=== PATIENT | male | born 1935 | race Caucasian/White ===

== ENCOUNTER 2021-02-27 08:32 | Day surgery (SDC) | payer OTHER ==
[~2021-02-27] VITALS: Ht 160 cm; Wt 81.8 kg
[~2021-02-27 08:32] MED LIST: SODIUM CHLORIDE 0.9% 1,000 ML IV ONE
[2021-02-27] MEDS ORDERED: SODIUM CHLORIDE 0.9% 1,000 ML ONE (08:55)
[2021-02-27 10:07] LABS: COVID AG,FIA SOURCE NASOPHARYNGEAL
[2021-02-27] MEDS ORDERED: PROPOFOL 1% 20 ML VIAL IVP ONE (12:00)
[2021-02-27] MEDS ORDERED: LIDOCAINE/PF 2% 5 ML VIAL IM ONE (12:00)
[2021-02-27] MEDS ORDERED: OXYGEN THERAPY IH SCH (20:00)
== END 2021-02-27 12:30 | disposition home or self-care (01) ==
LOC: SURGERY 08:32
PROVIDERS: ATTEND Specialist
DX: R13.10 Dysphagia, unspecified (principal); M10.9 Gout, unspecified; I48.91 Unspecified atrial fibrillation; E78.00 Pure hypercholesterolemia, unspecified; M19.90 Unspecified osteoarthritis, unspecified site; I10 Essential (primary) hypertension; Z98.890 Other specified postprocedural states; Z95.0 Presence of cardiac pacemaker; Z87.891 Personal history of nicotine dependence; Z86.73 Personal history of transient ischemic attack (TIA), and cerebral infarction without residual deficits; Z79.899 Other long term (current) drug therapy
CPT/HCPCS: 43235; 87426; 93005; C9803; J2704; J3490; J7030